=== PATIENT | male | born 1970 | race American Indian/Alaskan Native ===

== ENCOUNTER 2019-12-02 12:40 | Emergency (ER) | payer SELFPAY ==
[2019-12-02 12:52] VITALS: BP 126/81
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
== END 2019-12-02 14:00 | disposition home or self-care (01) ==
LOC: ED 12:40
DX: R52 Pain, unspecified (principal); V49.49XA Driver injured in collision with other motor vehicles in traffic accident, initial encounter; W22.10XA Striking against or struck by unspecified automobile airbag, initial encounter; Y93.89 Activity, other specified; Y92.410 Unspecified street and highway as the place of occurrence of the external cause; Y99.8 Other external cause status
CPT/HCPCS: 99282